=== PATIENT | female | born 1985 | race Two or more races ===

== ENCOUNTER 2018-11-25 14:51 | Outpatient (CLI) | payer OTHER | END 2018-11-25 14:55 | disposition home or self-care (01) | LOC: MAMO-SONO 14:51 | DX: N60.11 Diffuse cystic mastopathy of right breast (principal); N60.12 Diffuse cystic mastopathy of left breast; Z12.39 Encounter for other screening for malignant neoplasm of breast ==

== ENCOUNTER 2019-08-16 08:22 | Outpatient (CLI) | payer OTHER | END 2019-08-16 15:00 | disposition home or self-care (01) | LOC: LAB 08:22 | DX: D64.89 Other specified anemias (principal); E78.2 Mixed hyperlipidemia; E03.8 Other specified hypothyroidism; Z20.828 Contact with and (suspected) exposure to other viral communicable diseases ==

== ENCOUNTER → 2019-11-10 09:33 | Outpatient (CLI) | payer OTHER | END | disposition home or self-care (01) | LOC: LAB 09:33 | PROVIDERS: ATTEND Specialist | DX: J45.998 Other asthma (principal); Z20.828 Contact with and (suspected) exposure to other viral communicable diseases ==

== ENCOUNTER 2020-08-06 14:13 | Outpatient (CLI) | payer OTHER | END 2020-08-06 14:19 | disposition home or self-care (01) | LOC: RAD 14:13 | PROVIDERS: ATTEND Specialist | DX: G56.02 Carpal tunnel syndrome, left upper limb (principal) ==

== ENCOUNTER 2024-05-01 14:51 | Outpatient (CLI) | payer OTHER ==
[2024-05-01 16:03] LABS: ERYTHROCYTE SEDIMENTATION RATE 12 mm/hr
[2024-05-01 16:06] LABS: URINE APPEARANCE Cloudy; URINE BILIRRUBIN Negative (NEGATIVE); URINE BLOOD Negative; URINE COLOR Yellow; URINE GLUCOSE Negative (NEGATIVE); URINE KETONE 15 (NEGATIVE); URINE LEUKOCYTE Negative; URINE NITRATE Negative; URINE PROTEIN Trace (NEGATIVE)
[2024-05-01 16:09] LABS: URINE BACTERIA 96.6 uL (0.0-1933); URINE RBC 5.4 uL (0.0-20.8)
[2024-05-01 16:11] LABS: HEMATOCRIT 39.3 % (36.0-45.00); MEAN CORPUSCULAR HEMOGLOBIN 27.5 pg (27.00-32.0); MEAN CORPUSCULAR HGB CONC 33.1 g/dl (32.0-36.0); PLATELET COUNT 211 K/uL (150-450); RED BLOOD COUNT 4.73 M/uL (4.00-6.00)
[2024-05-01 16:31] LABS: URINE CAST 0.44 uL (0.0-1.40)
[2024-05-01 16:38] LABS: MYCOPLASMA PNEUMONIAE IGM NON REACTIVE (NO REACTIVE)
[2024-05-01 16:44] LABS: ALBUMIN 3.9 gm/dL (3.4-5.0); ALKALINE PHOSPHATASE 37 U/L (50-136); ALT/SGPT 17 U/L (12-78); ANION GAP 2 (10.0-20.0); AST/SGOT 27 U/L (15-37); BILIRUBIN TOTAL 0.28 mg/dL (0.3-1.2); BLOOD UREA NITROGEN 9 mg/dL (7-18); BUN CREA RATIO 12 (7.0-25.0); CARBON DIOXIDE 36 mEq/L (21-32); CHLORIDE 102 mmol/L (98-107); CREATININE SERUM 0.76 mg/dL (0.55-1.02); GFR 84.72; GLOBULINA 3.6 G/DL (2.4-3.5); GLUCOSE FASTING 91 mg/dL (65-100); OSMOLALITY SERUM 272 MOSM/KG (275-295); POTASSIUM 3.45 mEq/L (3.5-5.1); SODIUM 137 mmol/L (136-145); TOTAL PROTEIN 7.5 gm/dL (6.4-8.2)
[2024-05-01 16:46] LABS: C-REACTIVE PROTEIN < 0.29 MG/DL (0.00-0.29)
== END 2024-05-01 15:03 | disposition home or self-care (01) ==
LOC: LAB 14:51
PROVIDERS: ATTEND Specialist
DX: J11.1 Influenza due to unidentified influenza virus with other respiratory manifestations (principal); U07.1 COVID-19; A49.3 Mycoplasma infection, unspecified site; N39.9 Disorder of urinary system, unspecified; E11.65 Type 2 diabetes mellitus with hyperglycemia; D64.9 Anemia, unspecified; J45.998 Other asthma; N39.0 Urinary tract infection, site not specified; E55.9 Vitamin D deficiency, unspecified; M35.3 Polymyalgia rheumatica; A90 Dengue fever [classical dengue]; A83 Mosquito-borne viral encephalitis